=== PATIENT | male | born 1980 | race Caucasian/White ===

== ENCOUNTER 2018-06-16 03:24 | Emergency (ER) | payer SELFPAY ==
[~2018-06-16] VITALS: Ht 172.7 cm; Wt 99.8 kg
[2018-06-16 09:57] VITALS: BP 132/80
--- NOTE | 2018-06-16 09:57 | NUR ---
Patient discharged to home in stable condition. Written and verbal after care instructions given. Patient verbalizes understanding of instruction.
== END 2018-06-16 09:57 | disposition home or self-care (01) ==
LOC: ER 03:27
DX: F10.129 Alcohol abuse with intoxication, unspecified (principal); Z60.2 Problems related to living alone; Y90.9 Presence of alcohol in blood, level not specified
CPT/HCPCS: 82962; 99283; A4606; Z7610